=== PATIENT | male | born 1940 | race Caucasian/White ===

== ENCOUNTER → 2023-06-22 10:54 | Outpatient (REF) | payer OTHER, SELFPAY ==
[2023-06-22 11:38] LABS: % Basophils 0.5 % (0-2); % Immature Granulocytes 0.2 % (0-0.5); % Lymphocytes 24.4 % (20.5-51.1); % Monocytes 11.2 % (1.7-9.3); % Neutrophils 54.7 % (42.2-75.2); Absolute Eosinophils 0.8 10^3/uL (0-0.7); Absolute Lymphocytes 2.1 10^3/uL (1.2-3.4); Absolute Neutrophils 4.7 10^3/uL (1.4-6.5); Hematocrit 36.8 % (39.0-52.0); Hemoglobin 12.4 g/dL (13.0-18.0); Mean Corp Hgb Conc. 33.7 g/dL (33.0-37.0); Mean Corpuscular Hgb 31.4 pg (27.0-31.0); Mean Corpuscular Volume 93.2 fL (80.0-94.0); Mean Platelet Volume 11.5 fL (7.4-10.4); Nucleated Red Blood Cells % 0 % (-); Platelet Count 231 10^3/uL (130-400); Red Blood Cell Count 3.95 10^6/uL (4.70-6.10); Red Cell Dist. Width 14.1 % (11.5-14.5); White Blood Cell Count 8.7 10^3/uL (4.8-10.8)
[2023-06-22 12:00] LABS: ALT (SGPT) 18 U/L (0-50); AST (SGOT) 38 U/L (17-59); Albumin 3.9 g/dl (3.5-5.0); Alkaline Phosphatase 118 U/L (38-126); Blood Urea Nitrogen 23 mg/dl (9-20); Calcium 9.2 mg/dl (8.4-10.2); Carbon Dioxide 28 mmol/L (22-30); Chloride 102 mmol/L (98-107); Glucose 94 mg/dl (70-99); HDL Cholesterol 69 mg/dl; LDL Cholesterol, Calculated 96 mg/dl; Potassium 4.8 mmol/L (3.5-5.1); Sodium 139 mmol/L (135-145); Total Bilirubin 0.8 mg/dl (0.2-1.3); Total Cholesterol 179 mg/dl (50-199); Total Protein 7.7 g/dl (6.3-8.2); Triglyceride 74 mg/dl (10-149); Very Low Density Lipoprotein 14 mg/dl (0-30); eGFR > 60.00
[2023-06-22 12:11] LABS: Glycohemoglobin (HgbA1c) 5.6 % (4.0-5.6)
[2023-06-22 12:16] LABS: Vitamin D, 25-OH*** 43.2 ng/mL (30-80)
[2023-06-22 12:30] LABS: TSH 0.23 uIU/ml (0.47-4.68)
== END ==
LOC: OLABPG 10:54
PROVIDERS: ATTENDING PHYSICIAN Internal Medicine
DX: I48.91 Unspecified atrial fibrillation (principal)
CPT/HCPCS: 36415; 80053; 80061; 82306; 83036; 84443; 85025

== ENCOUNTER → 2023-10-26 11:06 | Outpatient (REF) | payer OTHER, SELFPAY ==
[2023-10-26 12:47] LABS: TSH Reflex To Free T4 0.52 uIU/ml (0.47-4.68)
== END ==
LOC: OLABPG 11:06
PROVIDERS: ATTENDING PHYSICIAN Family Medicine
DX: I48.91 Unspecified atrial fibrillation (principal)
CPT/HCPCS: 36415; 84443

== ENCOUNTER → 2023-12-29 11:48 | Outpatient (REF) | payer OTHER, SELFPAY ==
[2023-12-29 12:27] LABS: ALT (SGPT) 17 U/L (0-50); AST (SGOT) 33 U/L (17-59); Albumin 4.3 g/dl (3.5-5.0); Alkaline Phosphatase 125 U/L (38-126); Blood Urea Nitrogen 27 mg/dl (9-20); Calcium 9.2 mg/dl (8.4-10.2); Carbon Dioxide 29 mmol/L (22-30); Chloride 101 mmol/L (98-107); Glucose 94 mg/dl (70-99); HDL Cholesterol 72 mg/dl; LDL Cholesterol, Calculated 102 mg/dl; Potassium 4.4 mmol/L (3.5-5.1); Sodium 138 mmol/L (135-145); Total Bilirubin 0.7 mg/dl (0.2-1.3); Total Cholesterol 188 mg/dl (50-199); Total Protein 7.5 g/dl (6.3-8.2); Triglyceride 70 mg/dl (10-149); Very Low Density Lipoprotein 14 mg/dl (0-30); eGFR 59.26
[2023-12-29 12:46] LABS: Vitamin D, 25-OH*** 44.9 ng/mL (30-80)
[2023-12-29 12:58] LABS: Glycohemoglobin (HgbA1c) 5.8 % (4.0-5.6); TSH Reflex To Free T4 0.42 uIU/ml (0.47-4.68)
[2023-12-29 13:25] LABS: Free T4 1.03 ng/dl (0.78-2.19)
== END ==
LOC: OLABP 11:48
PROVIDERS: ATTENDING PHYSICIAN Family Medicine
DX: I48.91 Unspecified atrial fibrillation (principal)
CPT/HCPCS: 36415; 80053; 80061; 82306; 82728; 83036; 84439; 84443

== ENCOUNTER 2024-02-04 08:29 | Emergency (ER) | payer OTHER, SELFPAY ==
[2024-02-04 08:31] VITALS: BP 152/62
[2024-02-04 08:33] VITALS: BP 152/62; BMI 25.3
--- NOTE | 2024-02-04 08:53 | ED.GENMED ---
History of Present Illness
General
Chief Complaint: Fall
Source: patient, records and ambulance crew
Exam Limitations: none
Time Seen by Provider: 02/04/24 08:35
Nursing documentation reviewed up to this point in time: agreed with
History of Present Illness
History of Present Illness:
83-year-old male with a past medical history of hypertension, vascular dementia, A-fib who presents from [facility] for evaluation after fall with head strike. Patient does have history of dementia but is oriented x 3 and says that he
recalls the fall. He says that he was finishing up his morning routine in the bathroom cleaning his eyeglasses when he lost his balance and fell down. He says that he hit his head but did not lose consciousness. He denies any serious injuries
although he says he has had some chronic hip pain for quite some time on the right side. Specifically denies headache, neck pain, back pain, chest pain, abdominal pain, pain in the upper extremities. He does have a skin tear on the right arm which
was cleaned and dressed. He is on Eliquis for A-fib.
Past History
Past History
ED Past Medical History: HTN, Hypercholesterolemia, Psychiatric and Other (tia)
ED Past Surgical History: Other (Noncontributory)
Social History
Tobacco: Former smoker
Alcohol: None
Drug: None
Personal:
Living: with family
Review of Systems
Review of Systems
All Other Systems: ROS reviewed and negative except as documented in HPI and ROS
Respiratory: Denies trouble breathing
Cardiac: Denies chest pain
ABD/GI: Denies abdominal pain or nausea
: Denies flank pain
Musculoskeletal: Reports joint pain (Chronic right hip pain); Denies neck pain or back pain
Skin: Reports other (Skin tear)
Neurological: Denies dizzy or headache
Phy Exam
Physical Exam
Physical Exam:
General: Awake, alert, oriented x3�somewhat tangential in his speech but reasonable short-term recall; no acute distress
Head: Normocephalic, minor left parietal scalp contusion
Eyes: Conjunctiva normal, EOMI, pupils equal round and reactive to light bilaterally
Throat: Airway intact, handling secretions
Neck: Trachea midline, no cervical spine tenderness
Back: No signs of trauma back or flank, no tenderness in thoracic lumbar spine
Lungs: Clear to auscultation bilaterally, no wheezing, rales, rhonchi
Heart: Regular rate and rhythm, no murmurs, gallops, or rubs; no chest wall tenderness
Abd: Soft, non distended, nontender
Neuro: Cranial nerves grossly intact, speech fluid, no gross motor or sensory deficits
Skin: Right forearm skin tear
Extremities: Skin tear right forearm; no tenderness in the upper extremities and moves them through full range of motion without pain; no signs of acute trauma to the lower extremities, full active range of motion in both legs including the hips,
minor pain on flexion extension of the right hip; extremities are warm and well-perfused
Scores
Heart Failure Risk
Heart Failure Risk Score: Not Applicable
Heart Score for Chest Pain Patients
STEMI patient?: Not applicable
Withdrawal Assessment of Alcohol
Withdrawal Assessment Completed?: Not applicable
Course
Orders/Labs/Results
Orders:
Orders
02/04/24 08:33
CT Head W/o Iv Contrast Urgent
Comment:
Reason For Exam: fall with head strike, on blood thinners
02/04/24 08:36
CT Cervical Spine W/o Iv Contr Urgent
Comment:
Reason For Exam: unwtinessed fall with headstrike
02/04/24 08:51
CR Hip - RT w/wo Pel 2-3 Vw* Urgent
Comment:
Reason For Exam: right hip pain, fall
Include a pelvis x-ray?: Yes
02/04/24 09:01
Tetanus/Diphth/Acelpertussis [Adacel] 0.5 ml IM .ONCE ONE
Vital Signs
Initial and Last Documented VS:
Initial Vital Signs
BP
152/62
02/04/24 08:31
Last Documented Vital Signs
Temp Pulse Resp BP Pulse Ox
36.9 C 55 16 168/79 97
02/04/24 08:33 02/04/24 08:33 02/04/24 08:33 02/04/24 09:32 02/04/24 09:45
MDM/Problems Addressed
Differential Diagnosis Includes:
Traumatic head injury: Scalp hematoma, subdural hemorrhage
MDM/Problems Addressed:
83-year-old male presents for evaluation after a fall with head strike. No loss of consciousness. No other injuries reported although he complains of some pain in the right hip he says is a chronic issue. Hypertensive otherwise normal vitals.
Physical exam as above. Check CT head and cervical spine. Will check an x-ray of the right hip. Update tetanus. Monitor and reassess after the above.
CT head and cervical spine negative for any acute pathology. X-ray of the hip shows severe degenerative changes but no signs of acute fracture or other acute pathology. Patient remains awake and alert, no complaints on reassessment. Stable for
discharge back to [facility].
Chronic conditions affecting care:
Dementia
Acute Exacerbation and/or Progression of Chronic Illness:
Acutely hypertensive
Acute Exacerbation and/or Progression of Chronic Illness: HTN
*Radiology
Radiology exam reviewed: preliminary read by ED provider and radiology read reviewed
*Pulse Oximetry
Patient hypoxic: no
*Critical Care Note
Total Time (30-74mins, 75-104mins- exclusive of procedures): Not Applicable
Data Reviewed
Source: patient, records and ambulance crew
ED Attending Note
-
Portions of this chart may have been created with voice recognition software.� Occasional wrong word or��sound alike� substitutions may have occurred due to the inherent limitations of voice recognition software.
Discharge Plan
Departure
Patient Disposition: Home (Routine Discharge)
Date of Disposition: 02/04/24
Time of Disposition: 10:00
Patient with high blood pressure during this ER visit?: Yes
Discharge Problem:
Arthritis of right hip, Contusion of scalp, Skin tear of forearm without complication
Instructions: Osteoarthritis, Wound Care ED
Prescriptions:
No Action
lovastatin 40 MG tablet
40 mg PO DAILY
fluticasone propionate 1 SPRAY spray,suspension
1 spray intranasal BID
cholecalciferol (vitamin D3) 1,000 UNITS tablet
1,000 units PO DAILY
ICaps AREDS 1 EACH capsule
1 ea PO BID
losartan 50 mg Tablet
50 mg PO DAILY
psyllium Packet
1 packet PO DAILY
ferrous sulfate 325 mg (65 mg iron) Tablet
325 mg PO DAILY
brimonidine 0.2 % Drops
1 drp OPHTHALMIC (EYE) BID
hydroxyzine HCl 25 mg Tablet
25 mg PO BID
furosemide [Lasix] 20 mg Tablet
20 mg PO DAILY
escitalopram oxalate 10 mg Tablet
10 mg PO DAILY
Eliquis 2.5 mg Tablet
2.5 mg PO BID
Referrals:
Jonny Olmos Jr., [Family Provider] -
Montrell De León MD [Active] - Call in 1-3 days for appt (To follow up on your chronic right hip pain. )
Activity Restrictions/Additional Instructions:
Thank you for visiting the Emergency Department at [facility].
1. Please schedule a follow up appointment as directed. Call first thing tomorrow morning to make an appointment.
2. If indicated, please take your medications as instructed and indicated on discharge paperwork.
3. If any of your symptoms do not improve, or persist, or become more severe within 6-12 hours, please return to the emergency department for further care.
4. Please return to the emergency department if you develop a headache, neck pain/stiffness, fever greater than 100.4F, chest pain, shortness of breath, persistent nausea, vomiting, slurred speech, difficulty walking, numbness/tingling, weakness,
signs of infection or any other symptoms that are worrisome to you.
Please call [phone] if you have any questions.
Interventions
Interventions:
*Risk Screen - Suicide Last Done: 02/04/24 08:33
*General Assessment Last Done: 02/04/24 08:33
*Neglect/Abuse Screening Last Done: 02/04/24 08:33
ED- Fall Risk Assessment Last Done: 02/04/24 08:33
*ED COVID-19 Vaccine History Last Done: 02/04/24 08:33
ED-Musculoskeletal Assessment Last Done: 02/04/24 08:33
ED- Neurological Assessment Last Done: 02/04/24 08:33
ED-Skin Assessment Last Done: 02/04/24 08:33
Discharge Date and Time
Print Language: KISWAHILI
[2024-02-04 09:32] VITALS: BP 168/79
[2024-02-04 10:00] VITALS: BP 173/99
--- NOTE | 2024-02-04 10:03 | EDRN ---
Dr. Vang currently at the pts bedside
[2024-02-04 10:07] VITALS: BP 173/99
--- NOTE | 2024-02-04 10:37 | EDRN ---
the pts daughter will be taking the pt home to [facility]
== END 2024-02-04 10:44 | disposition home or self-care (01) ==
LOC: EMR 08:29
PROVIDERS: EMERGENCY PHYSICIAN Emergency Medicine; FAMILY PHYSICIAN Family Medicine
DX: S00.03XA Contusion of scalp, initial encounter (principal); S51.811A Laceration without foreign body of right forearm, initial encounter; W01.0XXA Fall on same level from slipping, tripping and stumbling without subsequent striking against object, initial encounter; M16.11 Unilateral primary osteoarthritis, right hip; Z87.891 Personal history of nicotine dependence; I48.91 Unspecified atrial fibrillation; I10 Essential (primary) hypertension; Z79.01 Long term (current) use of anticoagulants; F01.50 Vascular dementia, unspecified severity, without behavioral disturbance, psychotic disturbance, mood disturbance, and anxiety
CPT/HCPCS: 99284; 70450; 72125; 73502

== ENCOUNTER 2024-03-14 20:48 | Emergency (ER) | payer OTHER, SELFPAY ==
[2024-03-14 20:56] VITALS: BP 146/56
[2024-03-14 20:58] VITALS: BP 138/65
[2024-03-14 21:00] VITALS: BP 146/56
[2024-03-14 21:30] VITALS: BP 164/69
--- NOTE | 2024-03-14 21:42 | ED.MUSCINJ ---
HPI-Injury
General
Chief Complaint: Musculo-Skeletal Complaint
Source: patient and other (Nursing)
Exam Limitations: dementia (Slight, Able to answer questions)
Time Seen by Provider: 03/14/24 21:04
History of Present Illness-Injury
Is this injury a work related problem?: No
Is pt an associate of [facility]?: No
Initial Injury comments:
This is a 83 year old male tht comes in with c/o right knee pain. Patient states that yesterday he had fallen. Then today he was using his walker and he slid and went down on his knee. States that he has pain in the knee. States that he did not hit
his head or have any LOC. However, also states that yesterday he hit his shoulders when he fell. States that he has been a little dizzy. Denies any fever, chills, chest pain, SOB, abd pain, nausea, vomiting, diarrhea, headache, urinary burning.
Past History
Past History
ED Past Medical History: HTN, Hypercholesterolemia, Psychiatric and Other (Slight Dementia. TIA, )
ED Past Surgical History: Other (right 2nd digit surgery, )
Social History
Tobacco: Former smoker
Alcohol: None
Drug: None
Personal:
Living: with family
Review of Systems
Review of Systems
All Other Systems: ROS reviewed and negative except as documented in HPI and ROS
Constitutional: Reports no symptoms; Denies fever or chills
EENT: Reports no symptoms
Respiratory: Reports no symptoms; Denies cough or trouble breathing
Cardiac: Reports no symptoms; Denies chest pain
ABD/GI: Reports no symptoms; Denies abdominal pain, nausea, vomiting or diarrhea
: Denies dysuria, frequency or urgency
Musculoskeletal: Reports joint pain (Right knee pain)
Skin: Reports no symptoms
Neurological: Reports dizzy (Slight); Denies headache
Psychiatric: Reports no symptoms
Musculoskeletal Injury Exam
Musculoskeletal Injury Exam
Right Proximal Knee:
Pain with Movement?: Mild
Tender to palpation?: Mild
Soft tissue swelling?: Mild
External deformity and angulation?: None
Joint effusion?: Moderate
Contusion?: None
Hematoma-local bleeding into tissue?: None
Strain- Sprain- Tear (Connective tissue injury)?: None
Crepitus with movement?: No
Joint instability?: No
Malalignment/deformity?: No
Range of motion: Limited (Due to pain)
Distal skin color and temperature: normal-warm & good color
Capillary Refill: normal
Normal distal neurovascular exam?: Yes
Phy Exam
General Physical Exam
General Presentation: well appearing and no apparent distress
General age: appears stated age
General Skin: warm and dry
General Habitus: elderly
General Mental: usual mental status
General Hydration: appears well hydrated
ENT Exam
ENT Exam: TM's normal, pharynx normal and neck supple
Eye Exam
Eye Exam: EOMI
Cardiovascular Exam
Cardiovascular Exam: regular rate/rhythm, no edema, no murmur and normal peripheral pulses
Pulmonary Exam
Pulmonary Exam: lungs clear, no respiratory distress, no rales, chest non tender, no crackles, no rhonchi, no wheezing and no cough
Gastrointestinal Exam
Gastrointestinal Exam: normal bowel sounds, non tender, soft, no organomegaly, no pulsatile mass and non distended
Musculoskeletal Exam
Musculoskeletal Exam: no edema and joint swelling (Right knee effusion palpation proximal knee, Patient able to flex with some discomfort. Negative for any cervical neck or shoulder tenderness. Patient can cross over, abduct, flex elbows move wrist
and fingers. )
Skin Exam
Skin Exam: normal color, warm/dry, no rash and no petechia
Psychiatric Exam
Psychiatric Exam: normal mood/affect
Injury Course
Orders/Labs/Results
Orders:
Orders
03/14/24 21:41
CT Head W/o Iv Contrast Urgent
Comment:
Reason For Exam: Fall Eliquis
CR Knee- Right 4 Or More View* Urgent
Comment:
Reason For Exam: Fall, knee pain
03/14/24 23:27
Yair Wrap Right-Treatment ONCE
MDM/Problems Addressed
Differential Diagnosis Includes:
Knee effusion, Sprain knee
MDM/Problems Addressed:
This is a 83 year old male that comes in with c/o right knee pain. States that he fell on his knee today.
Will check X-ray.
Back into see patient. Explained that there is no fracture or dislocation. Patient to wear the yair wrap help give the knee support. Patient was able to walk with the walker. Will discharge patient back to the [facility]. Tylenol as needed for
pain.
Chronic conditions affecting care:
NA
Acute Exacerbation and/or Progression of Chronic Illness:
NA
*Radiology
Radiology exam reviewed: preliminary read by ED provider (Right knee- Negative for fracture or dislocation. Small effusion noted. ) and radiology read reviewed (CT head-NO evidence of acute intracranial abnormality. Right knee-NO evidence of acute
fracture or dislocation. IF there are persistent clinical symptoms and further imaging evaluation is desired, consider MRI. )
*Pulse Oximetry
Patient hypoxic: no
*EKG
Interpreted by ED Provider?: NA
Rate: EKG- N/A
*Employment Specialist Interpretation
Rate: Employment Specialist- N/A
*Critical Care Note
Total Time (30-74mins, 75-104mins- exclusive of procedures): Not Applicable
ED Attending Note
-
Portions of this chart may have been created with voice recognition software.� Occasional wrong word or��sound alike� substitutions may have occurred due to the inherent limitations of voice recognition software.
Discharge Plan
Departure
Patient Disposition: Penitentiary/SNF
Date of Disposition: 03/15/24
Time of Disposition: 00:40
Patient with high blood pressure during this ER visit?: Yes
Condition: Good
Covid-19: Not Applicable
Discharge Problem:
Acute pain of right knee
Instructions: Knee Pain (DC), BLOOD PRESSURE
Prescriptions:
No Action
lovastatin 40 MG tablet
40 mg PO DAILY
fluticasone propionate 1 SPRAY spray,suspension
1 spray intranasal BID
cholecalciferol (vitamin D3) 1,000 UNITS tablet
1,000 units PO DAILY
ICaps AREDS 1 EACH capsule
1 ea PO BID
losartan 50 mg Tablet
50 mg PO DAILY
psyllium Packet
1 packet PO DAILY
ferrous sulfate 325 mg (65 mg iron) Tablet
325 mg PO DAILY
brimonidine 0.2 % Drops
1 drp OPHTHALMIC (EYE) BID
hydroxyzine HCl 25 mg Tablet
25 mg PO BID
furosemide [Lasix] 20 mg Tablet
20 mg PO DAILY
escitalopram oxalate 10 mg Tablet
10 mg PO DAILY
Eliquis 2.5 mg Tablet
2.5 mg PO BID
Referrals:
Jonny Olmos Jr., [Family Provider] - Follow up in 5-7 days
Activity Restrictions/Additional Instructions:
As discussed, the CT of the head is negative for any acute process. The X-ray of the right knee is negative for fracture or dislocation. Please use the yair wrap to help given the knee support. Follow up with the family doctor for further evaluation.
Elevated the leg when sitting around and apply ice. Tylenol 1000mg every 6 hours for pain. Patient was given Tylenol while here. Follow up with the family doctor for recheck. IF YOU HAVE INCREASED OR CHANGING PAIN, OR YOU HAVE ANY OTHER CONCERNS
PLEASE RETURN TO THE EMERGENCY ROOM.
Interventions
Interventions:
*Risk Screen - Suicide Last Done: 03/14/24 20:56
*General Assessment Last Done: 03/14/24 20:56
*Neglect/Abuse Screening Last Done: 03/14/24 20:56
ED- Fall Risk Assessment Last Done: 03/14/24 21:15
*ED COVID-19 Vaccine History Last Done: 03/14/24 21:15
ED-Musculoskeletal Assessment Last Done: 03/14/24 21:15
Discharge Date and Time
Print Language: ICELANDIC
[2024-03-15] MEDS: TYLENOL 1000 MG PO (00:48)
[2024-03-15 09:11] VITALS: BP 142/63
== END 2024-03-15 09:25 ==
LOC: EMR 20:48
PROVIDERS: EMERGENCY PHYSICIAN Emergency Medicine; FAMILY PHYSICIAN Family Medicine
DX: M25.561 Pain in right knee (principal); W19.XXXA Unspecified fall, initial encounter; F03.90 Unspecified dementia, unspecified severity, without behavioral disturbance, psychotic disturbance, mood disturbance, and anxiety; Z87.891 Personal history of nicotine dependence; I10 Essential (primary) hypertension
CPT/HCPCS: 99284; 70450; 73564

== ENCOUNTER → 2024-06-20 10:23 | Outpatient (REF) | payer OTHER, SELFPAY ==
[2024-06-20 11:41] LABS: Hematocrit 31.3 % (39.0-52.0); Hemoglobin 10.4 g/dL (13.0-18.0); Mean Corp Hgb Conc. 33.2 g/dL (33.0-37.0); Mean Corpuscular Hgb 30.6 pg (27.0-31.0); Mean Corpuscular Volume 92.1 fL (80.0-94.0); Mean Platelet Volume 10.9 fL (7.4-10.4); Platelet Count 267 10^3/uL (130-400); Red Cell Dist. Width 14.1 % (11.5-14.5); White Blood Cell Count 10.2 10^3/uL (4.8-10.8)
[2024-06-20 11:48] LABS: ALT (SGPT) 18 U/L (0-50); AST (SGOT) 30 U/L (17-59); Albumin 3.7 g/dl (3.5-5.0); Alkaline Phosphatase 127 U/L (38-126); Blood Urea Nitrogen 19 mg/dl (9-20); Calcium 8.9 mg/dl (8.4-10.2); Carbon Dioxide 31 mmol/L (22-30); Chloride 101 mmol/L (98-107); Glucose 95 mg/dl (70-99); HDL Cholesterol 57 mg/dl; Potassium 4.7 mmol/L (3.5-5.1); Sodium 139 mmol/L (135-145); Total Bilirubin 0.7 mg/dl (0.2-1.3); Total Protein 6.8 g/dl (6.3-8.2); Triglyceride 55 mg/dl (10-149); Very Low Density Lipoprotein 11 mg/dl (0-30); eGFR > 60.00
[2024-06-20 12:21] LABS: TSH Reflex To Free T4 0.72 uIU/ml (0.47-4.68)
[2024-06-20 12:40] LABS: Vitamin B12 564 pg/ml (239-931)
[2024-06-20 12:44] LABS: Glycohemoglobin (HgbA1c) 5.7 % (4.0-5.6)
[2024-06-20 13:25] LABS: LDL Cholesterol, Calculated 88 mg/dl; Total Cholesterol 156 mg/dl (50-199)
== END ==
LOC: OLABPG 10:23
PROVIDERS: ATTENDING PHYSICIAN Family Medicine
DX: I48.91 Unspecified atrial fibrillation (principal)
CPT/HCPCS: 36415; 80053; 80061; 82607; 82728; 83036; 84443; 85027

== ENCOUNTER → 2024-07-20 09:22 | Outpatient (REF) | payer OTHER, SELFPAY ==
[2024-07-20 11:06] LABS: % Basophils 0.1 % (0-2); % Eosinophils 1.8 % (0-6); % Immature Granulocytes 0.5 % (0-0.5); % Lymphocytes 15.8 % (20.5-51.1); % Monocytes 15.5 % (1.7-9.3); % Neutrophils 66.3 % (42.2-75.2); Absolute Eosinophils 0.2 10^3/uL (0-0.7); Absolute Immature Granulocytes 0.1 10^3/uL (0-0.05); Absolute Lymphocytes 2.1 10^3/uL (1.2-3.4); Absolute Neutrophils 8.6 10^3/uL (1.4-6.5); Hematocrit 27.5 % (39.0-52.0); Hemoglobin 9.1 g/dL (13.0-18.0); Mean Corp Hgb Conc. 33.1 g/dL (33.0-37.0); Mean Corpuscular Hgb 30.4 pg (27.0-31.0); Mean Platelet Volume 10.8 fL (7.4-10.4); Nucleated Red Blood Cells % 0 % (-); Platelet Count 316 10^3/uL (130-400); Red Blood Cell Count 2.99 10^6/uL (4.70-6.10); Red Cell Dist. Width 14.1 % (11.5-14.5)
== END ==
LOC: OLABPG 09:22
PROVIDERS: ATTENDING PHYSICIAN Family Medicine
DX: I48.91 Unspecified atrial fibrillation (principal)
CPT/HCPCS: 36415; 82728; 84443; 85025

== ENCOUNTER → 2024-07-27 11:11 | Outpatient (REF) | payer OTHER, SELFPAY ==
[2024-07-27 11:45] LABS: % Basophils 0.2 % (0-2); % Eosinophils 4.1 % (0-6); % Immature Granulocytes 0.3 % (0-0.5); % Lymphocytes 17.9 % (20.5-51.1); % Neutrophils 67.5 % (42.2-75.2); Absolute Eosinophils 0.4 10^3/uL (0-0.7); Absolute Lymphocytes 1.7 10^3/uL (1.2-3.4); Absolute Neutrophils 6.4 10^3/uL (1.4-6.5); Hematocrit 26.7 % (39.0-52.0); Hemoglobin 8.9 g/dL (13.0-18.0); Mean Corp Hgb Conc. 33.3 g/dL (33.0-37.0); Mean Corpuscular Hgb 30.4 pg (27.0-31.0); Mean Corpuscular Volume 91.1 fL (80.0-94.0); Mean Platelet Volume 10.4 fL (7.4-10.4); Nucleated Red Blood Cells % 0 % (-); Platelet Count 405 10^3/uL (130-400); Red Blood Cell Count 2.93 10^6/uL (4.70-6.10); Red Cell Dist. Width 13.8 % (11.5-14.5); White Blood Cell Count 9.5 10^3/uL (4.8-10.8)
[2024-07-27 12:53] LABS: Folate > 20.0 ng/ml (2.76-20); Vitamin B12 622 pg/ml (239-931)
== END ==
LOC: OLABPG 11:11
PROVIDERS: ATTENDING PHYSICIAN Family Medicine
DX: R53.83 Other fatigue (principal); I48.91 Unspecified atrial fibrillation; D64.9 Anemia, unspecified
CPT/HCPCS: 36415; 82607; 82746; 85025

== ENCOUNTER → 2024-08-01 11:13 | Outpatient (REF) | payer OTHER, SELFPAY ==
[2024-08-01 11:55] LABS: % Basophils 0.3 % (0-2); % Eosinophils 3.2 % (0-6); % Immature Granulocytes 0.3 % (0-0.5); % Lymphocytes 17.7 % (20.5-51.1); % Monocytes 10.5 % (1.7-9.3); Absolute Eosinophils 0.3 10^3/uL (0-0.7); Absolute Lymphocytes 1.9 10^3/uL (1.2-3.4); Absolute Monocytes 1.1 10^3/uL (0.1-0.6); Absolute Neutrophils 7.2 10^3/uL (1.4-6.5); Hematocrit 27.1 % (39.0-52.0); Mean Corp Hgb Conc. 33.2 g/dL (33.0-37.0); Mean Corpuscular Hgb 30.3 pg (27.0-31.0); Mean Corpuscular Volume 91.2 fL (80.0-94.0); Mean Platelet Volume 10.7 fL (7.4-10.4); Nucleated Red Blood Cells % 0 % (-); Platelet Count 386 10^3/uL (130-400); Red Blood Cell Count 2.97 10^6/uL (4.70-6.10); Red Cell Dist. Width 14.1 % (11.5-14.5); White Blood Cell Count 10.6 10^3/uL (4.8-10.8)
== END ==
LOC: OLABPG 11:13
PROVIDERS: ATTENDING PHYSICIAN Family Medicine
DX: I48.91 Unspecified atrial fibrillation (principal)
CPT/HCPCS: 36415; 85025

== ENCOUNTER → 2024-08-29 11:05 | Outpatient (REF) | payer OTHER, SELFPAY ==
[2024-08-29 11:54] LABS: ALT (SGPT) 16 U/L (0-50); AST (SGOT) 26 U/L (17-59); Albumin 3.4 g/dl (3.5-5.0); Alkaline Phosphatase 120 U/L (38-126); Blood Urea Nitrogen 18 mg/dl (9-20); Calcium 8.8 mg/dl (8.4-10.2); Carbon Dioxide 27 mmol/L (22-30); Chloride 104 mmol/L (98-107); Glucose 102 mg/dl (70-99); Iron 75 ug/dl (49-181); Potassium 4.1 mmol/L (3.5-5.1); Sodium 138 mmol/L (135-145); Total Bilirubin 0.6 mg/dl (0.2-1.3); Total Protein 6.9 g/dl (6.3-8.2); eGFR > 60.00
[2024-08-29 12:05] LABS: % Basophils 0.3 % (0-2); % Eosinophils 4.7 % (0-6); % Immature Granulocytes 0.6 % (0-0.5); % Lymphocytes 19.4 % (20.5-51.1); % Monocytes 9.7 % (1.7-9.3); % Neutrophils 65.3 % (42.2-75.2); Absolute Eosinophils 0.5 10^3/uL (0-0.7); Absolute Immature Granulocytes 0.1 10^3/uL (0-0.05); Absolute Lymphocytes 1.9 10^3/uL (1.2-3.4); Absolute Neutrophils 6.5 10^3/uL (1.4-6.5); Hemoglobin 9.5 g/dL (13.0-18.0); Mean Corp Hgb Conc. 33.9 g/dL (33.0-37.0); Mean Corpuscular Hgb 30.4 pg (27.0-31.0); Mean Corpuscular Volume 89.7 fL (80.0-94.0); Nucleated Red Blood Cells % 0 % (-); Percent Saturation 35 % (20-50); Red Blood Cell Count 3.12 10^6/uL (4.70-6.10); Red Cell Dist. Width 14.6 % (11.5-14.5); Reticulocyte Count 2.4 % (0.4-2.8); Total Iron Binding Capacity 210 ug/dl (261-462)
[2024-08-29 12:27] LABS: PSA, Total - Screen 1.84 ng/ml (0.0-4.0)
[2024-08-29 13:02] LABS: Folate > 20.0 ng/ml (2.76-20); Vitamin B12 434 pg/ml (239-931)
[2024-08-31 05:29] LABS: IgA 602 mg/dl (70-400); IgG 1721 mg/dl (700-1600); IgM 43 mg/dl (40-230)
[2024-08-31 11:51] LABS: Capillary Hgb Electrophoresis Not Performed; Sickle Cell Solubility Reflex Not Performed
[2024-08-31 18:13] LABS: Erythropoietin (EPO) 16 mU/mL (4-27)
== END ==
LOC: OLABPG 11:05
PROVIDERS: ATTENDING PHYSICIAN Internal Medicine Hematology & Oncology
DX: D64.9 Anemia, unspecified (principal); D72.829 Elevated white blood cell count, unspecified
CPT/HCPCS: 36415; 80053; 82232; 82607; 82668; 82728; 82746; 82784; 83010; 83021; 83521; 83540; 83550; 84155; 84165; 85025; 85045; 86334; G0103

== ENCOUNTER → 2025-03-06 12:48 | Outpatient (REF) | payer OTHER, SELFPAY ==
[2025-03-06 13:41] LABS: Hematocrit 30.7 % (39.0-52.0); Hemoglobin 10.1 g/dL (13.0-18.0); Mean Corp Hgb Conc. 32.9 g/dL (33.0-37.0); Mean Corpuscular Volume 92.7 fL (80.0-94.0); Nucleated Red Blood Cells % 0 % (-); Platelet Count 269 10^3/uL (130-400); Red Cell Dist. Width 13.9 % (11.5-14.5)
[2025-03-06 14:09] LABS: ALT (SGPT) 17 U/L (0-50); AST (SGOT) 27 U/L (17-59); Albumin 3.5 g/dl (3.5-5.0); Alkaline Phosphatase 109 U/L (38-126); Blood Urea Nitrogen 26 mg/dl (9-20); Calcium 8.9 mg/dl (8.4-10.2); Carbon Dioxide 30 mmol/L (22-30); Chloride 104 mmol/L (98-107); Glucose 85 mg/dl (70-99); HDL Cholesterol 56 mg/dl; Iron 74 ug/dl (49-181); LDL Cholesterol, Calculated 89 mg/dl; Potassium 4.7 mmol/L (3.5-5.1); Sodium 136 mmol/L (135-145); Total Protein 6.9 g/dl (6.3-8.2); Very Low Density Lipoprotein 10 mg/dl (0-30); eGFR > 60.00
[2025-03-06 14:18] LABS: Total Iron Binding Capacity 214 ug/dl (261-462)
[2025-03-06 14:27] LABS: Vitamin D, 25-OH*** 37.9 ng/mL (30-80)
[2025-03-06 14:45] LABS: Ferritin 296.0 ng/ml (17.9-464.0)
[2025-03-06 15:01] LABS: Glycohemoglobin (HgbA1c) 5.5 % (4.0-5.6)
== END ==
LOC: OLABP 12:48
PROVIDERS: ATTENDING PHYSICIAN Family Medicine
DX: E55.9 Vitamin D deficiency, unspecified (principal); E78.49 Other hyperlipidemia; G30.9 Alzheimer's disease, unspecified; I48.91 Unspecified atrial fibrillation; E16.2 Hypoglycemia, unspecified
CPT/HCPCS: 36415; 80053; 80061; 82306; 82728; 83036; 83540; 83550; 84443; 85025